=== PATIENT | male | born 2005 | race Caucasian/White ===

== ENCOUNTER → 2024-01-10 | Outpatient (CLI) | payer OTHER, SELFPAY ==
[2024-01-10 15:25] LABS: Absolute Lymphocyte Count 1.65 X10^3/uL (0.83-4.51); Absolute Neutrophil Count 1.8 X10^3/uL (2.0-7.7); Basophil# 0.03 X10^3/uL; Basophil% 0.7 % (0-1); Eosinophil# 0.15 X10^3/uL; Eosinophils% 3.7 % (0-5); Hematocrit 45.9 % (40-54); Hemoglobin 15.3 g/dL (13.0-16.5); Lymphocyte # 1.65 X10^3/ul (0.83-4.51); Lymphocyte % 41.1 % (19-41); Mean Corp Hgb Conc 33.3 g/dL (32-36); Mean Corpuscular Hgb 29.3 pg (27.0-32.0); Mean Corpuscular Volume 87.9 fL (80-94); Mean Platelet Vol. 10.9 fl (6.2-12.0); Monocyte# 0.42 X10^3/uL; Monocyte% 10.5 % (0-10); NRBC Flagged by Analyzer 0 % (0-5); Neutrophil # 1.76 X10^3/uL (2.7-7.7); Platelet Count 245 K/mm3 (150-450); RBC Distribution Width CV 12.6 % (11.6-14.6); RBC Distribution Width SD 40.3 fl (35.1-43.9); Red Blood Count 5.22 M/mm3 (4.6-6.2)
[2024-01-10 15:47] LABS: ALB/GLOB Ratio 1.3 RATIO (0.9-2.4); AST(SGOT) 17 U/L (15-37); Alanine Aminotransfer ALT/SGPT 20 U/L (16-61); Albumin, Serum 4.4 g/dL (3.2-5.0); Alkaline Phosphatase 71 U/L (45-117); Anion Gap 4 (5-15); BUN 13 mg/dL (7-18); BUN/Creat Ratio 11.5 RATIO (10-20); Calcium,Total 9.5 mg/dL (8.5-10.1); Chloride 105 mmol/L (98-107); Creatinine, Serum 1.13 mg/dL (0.70-1.30); EST Glomerular Filtration Rate 88 mL/min (>60); Est Glom Filt Rate - Afr Amer 107 mL/min (>60); Globulin 3.3 g/dL (2.2-4.2); Glucose 108 mg/dL (74-106); Potassium 4.1 mmol/L (3.5-5.1); Protein, Total 7.7 g/dL (6.4-8.2); Sodium Level 138 mmol/L (136-145)
== END | disposition home or self-care (01) ==
LOC: BIMLAB 13:23
PROVIDERS: PCP Internal Medicine; Visit Provider Internal Medicine
DX: Z00.00 Encounter for general adult medical examination without abnormal findings (principal)
CPT/HCPCS: 36415; 80053; 85025

== ENCOUNTER 2024-11-06 20:51 | Emergency (ER) | payer OTHER, SELFPAY ==
[2024-11-06 20:52] VITALS: BP 132/87; PULSE 88; RESP 16; TEMP 36.9; O2SAT 100; BMI 18.3
--- NOTE | 2024-11-06 22:44 | CT_ITS ---
PROCEDURE: ABDOMEN/PELVIS W IV CONT ONLY 11/06/2024 REASON FOR EXAM: RUQ PAIN TECHNIQUE: Abdomen and pelvis CT with intravenous contrast. Coronal and Sagittal reconstruction series were provided. PATIENT PREPARATION: Per protocol ORAL CONTRAST TYPE: None. AMOUNT: mL CONTRAST: Isovue 370 VOLUME: 100 mL Not Provided Gauge IV One or more dose reduction techniques were used (e.g., Automated exposure control, adjustment of the mA and/or kV according to patient size, use of iterative reconstruction technique. RADIATION DOSE SUMMARY: CTDlvol: 20 mGy DLP: 404 mGycm COMPARISON: None FINDINGS: Lung bases: Unremarkable Liver: Normal size. No mass. Gallbladder: Unremarkable Spleen: Normal size. Pancreas: Normal size without evidence of mass surrounding inflammation or ductal dilation. Adrenals: Unremarkable Kidneys: Normal renal sizes. No hydronephrosis. Bladder: Unremarkable Reproductive Organs: Unremarkable Bowel: [id number] stool burden within the large bowel. No inflammatory changes of the bowel loops. The stomach is grossly unremarkable. Appendix: Unremarkable Lymph nodes: No lymphadenopathy. Vasculature: Unremarkable Peritoneum / Retroperitoneum: No free air or free fluid. Bones: Unremarkable CT/Abdomen/Pelvis W IV Cont ONLY IMPRESSION: [id number]-[id number] stool burden within the large bowel. No inflammatory changes of the bowel loops. No radiographic evidence of cholelithiasis. OVERALL FINAL ASSESSMENT: . LI-RADS is not meant to be used in patients <18 years or patients with cirrhosi s due to congenital hepatic fibrosis or due to vascular disorders, because these patients have a lower chance of developing HC C. Reading Location: [facility]
[2024-11-06] MEDS: 0.9% Normal Saline (1000mL) 1,000 ML 999 ML IV (22:51)
[2024-11-06 22:53] LABS: Absolute Lymphocyte Count 1.09 X10^3/uL (0.83-4.51); Absolute Neutrophil Count 4.7 X10^3/uL (2.0-7.7); Basophil# 0.04 X10^3/uL; Basophil% 0.6 % (0-1); Eosinophil# 0.04 X10^3/uL; Eosinophils% 0.6 % (0-5); Hematocrit 46.5 % (40-54); Hemoglobin 15.9 g/dL (13.0-16.5); Lymphocyte # 1.09 X10^3/ul (0.83-4.51); Lymphocyte % 17.1 % (19-41); Mean Corp Hgb Conc 34.2 g/dL (32-36); Mean Corpuscular Hgb 29.9 pg (27.0-32.0); Mean Corpuscular Volume 87.6 fL (80-94); Mean Platelet Vol. 10.8 fl (6.2-12.0); Monocyte# 0.47 X10^3/uL; Monocyte% 7.4 % (0-10); NRBC Flagged by Analyzer 0 % (0-5); Platelet Count 239 K/mm3 (150-450); RBC Distribution Width CV 12.4 % (11.6-14.6); RBC Distribution Width SD 39.5 fl (35.1-43.9); Red Blood Count 5.31 M/mm3 (4.6-6.2); White Blood Count 6.4 K/mm3 (4.4-11.0)
[2024-11-06 23:09] LABS: Lipase 23 U/L (13-75)
[2024-11-06 23:15] LABS: AST(SGOT) 41 U/L (<=37); Alanine Aminotransfer ALT/SGPT 32 U/L (<=46); Albumin, Serum 5.4 g/dL (3.5-5.0); Alkaline Phosphatase 69 U/L (40-129); Anion Gap 14 (5-15); BUN 14 mg/dL (4-19); BUN/Creat Ratio 13.8 RATIO (10-20); Bilirubin, Direct 0.16 mg/dL (0.00-0.30); Calcium,Total 10.1 mg/dL (7.6-11.0); Carbon Dioxide 24.9 mmol/L (21.0-32.0); Chloride 100 mmol/L (98-108); Creatinine, Serum 1.01 mg/dL (0.70-1.20); EST Glomerular Filtration Rate 109 (>60); Estimated Creatinine Clearance 101.05 ml/min (50-250); Glucose 87 mg/dL (70-99); Potassium 4.3 mmol/L (3.3-5.1); Protein, Total 8.4 g/dL (5.9-8.4); Sodium Level 138 mmol/L (133-145); Total Bilirubin 0.82 mg/dL (0.00-1.30)
[2024-11-07] VITALS: BP 140/68; PULSE 81; RESP 16; O2SAT 100
[2024-11-07 00:11] LABS: Bacteria 0 SEEN /hpf (None Seen); Mucous, Urine 0 SEEN /hpf (<or=2+); Red Blood Cells-Urine 0 SEEN /hpf (0-5); Squamous Epithelial Cells - UA 0 SEEN /hpf (0-5); White Blood Cells 0 SEEN /hpf (0-5)
[2024-11-07 00:13] LABS: Color, Urine Yellow (Yellow); Glucose, Dipstick Normal (Normal); Ketone-Dipstick 50 mg/dl (Negative); Leukocyte Esterase-Dipstick Negative /ul (Negative); Nitrite-Dipstick Negative (Negative); Occult Blood-Urine Negative /ul (Negative); Protein-Dipstick 15 mg/dl (Negative); Specific Gravity, Urine 1.005 (1.002-1.030); Urine Bilirubin Dipstick Negative (Negative); Urine Clarity Clear (Clear); Urine Urobilinogen Normal (Normal)
--- NOTE | 2024-11-07 01:16 | EDS_ITS ---
HPI History of Present Illness Chief Complaint: Abd Pain Informant: patient and parent Narrative Narrative: Patient is a 19-year-old male who is otherwise healthy who presents to the ER with approximately 1 to 2 days of abdominal pain. Patient states that over the last 1 to 2 days he has had intermittent pain in the right upper abdomen. He states there is no associated nausea or vomiting. He denies any worsening with eating. He states there is been no dysuria or hematuria/discolored urine. He reports that other than the pain there has been no fevers chills or sick symptoms. Family states that his sister had an atypical presentation for appendicitis leading to perforation when she was younger and they have concern for that based on his symptoms and therefore he was brought in for evaluation [facility] Medical History Encounter to establish care Preventative health care Asthma Seasonal allergies Home Medications ?Medication ?Instructions ?Recorded ?Last Taken ?Type NK 12/28/22 Unknown History Allergy/AdvReac Type Severity Reaction Status Date / Time Seasonal Allergies: Uncoded Allergy Mild cough Verified 11/06/24 20:52 Family History Mother Anxiety Father DVT (deep venous thrombosis) Hypertension High cholesterol Kidney disease Social History (Updated 03/01/24 @ 10:00 by Susan Olvera MA) household members: family housing: house current occupational status: unemployed Smoking Status: Never smoker alcohol intake: never substance use type: does not use what type of physical activity do you participate in: running frequency: 5-6 times per week seatbelt use: always do you feel safe at home: Yes ROS ROS ED Constitutional Constitutional ED: Denies chills or fever(s) Eyes Eyes: Denies blurry vision or change in vision ENT ENT ED: Denies sore throat Cardiovascular Cardiovascular: Denies chest pain Respiratory/Chest Respiratory/Chest: Denies cough or dyspnea Gastrointestinal Gastrointestinal: Reports abdominal pain; Denies diarrhea, nausea or vomiting Genitourinary Genitourinary ED: Denies dysuria or hematuria Musculoskeletal Musculoskeletal: Denies back pain Integumentary Denies Abrasions or rash Neurologic Neurologic: Denies headache(s) Hematologic/Lymphatic Hematologic/Lymphatic: Denies easy bleeding or easy bruising EXAM Physical Exam Const Vital Signs: 11/06/24 20:52 11/07/24 00:00 11/07/24 01:21 Temperature 98.4 F 98.6 F Temperature Source Oral Pulse Rate 88 81 81 Respiratory Rate 16 16 16 Blood Pressure 132/87 H 140/68 H 140/68 H Blood Pressure Mean 102 92 92 Pulse Ox 100 100 100 Oxygen Delivery Method Room Air Room Air Positive well nourished and well developed General Appearance ED: well developed; Negative for pallor HEENT Reports moist mucous membranes HEENT Narrative: No tongue or lip swelling no oral lesions no airway edema or compromise No secondary findings in the posterior pharynx to suggest infection Eyes PERRL and EOMs intact bilaterally General Eye ED: Negative for scleral icterus Neck supple Resp normal respiratory effort and clear to auscultation bilaterally Cardio regular rate and regular rhythm GI non-distended and no masses GI Narrative: Abdomen is soft and nondistended with normal active bowel sounds Patient has pain with palpation in the right upper quadrant. However no voluntary guarding or rigidity. Negative Garcia sign No pain over McBurney's point Negative heel strike psoas and aegis console operator track signs Auscultation: normoactive bowel sounds Palpation: soft Back/Spine no CVA tenderness Extremity normal to inspection Neuro oriented x3, CN's II-XII intact bilaterally and no sensory deficits noted Sensorium / Orientation: alert Motor Exam: strength 5/5 throughout Psych mental status grossly normal Skin no rashes or lesions noted and no wounds General Skin Exam: Negative for jaundice or pallor MDM MDM MDM Narrative Medical decision making narrative: Patient presented to the ER with 1 to 2 days of of upper abdominal pain. Differ ential diagnosis is for biliary colic versus acute cholecystitis versus pancreatitis versus atypical presentation for kidney stone versus atypical presentation for appendicitis. Secondary to this basic labs with a urine sample and a CT scan with IV contrast were ordered. Labs and urine sample showed no clinically significant findings. As he does not have CVA pain or hematuria concern for kidney stone is low. CT scan revealed findings consistent with constipation but no signs of acute appendicitis or findings of gallstones or gallbladder inflammation. Therefore at this time as overall workup is negative and he has had spontaneous improvement of symptoms I do not feel there is need for further intervention and he is otherwise safe for discharge History & Record Review Discussion w/independent historian: Patient and Family Lab Data Attestation: I reviewed the patient's lab results. Labs: Laboratory Results - last 24 hr 11/06/24 11/07/24 22:38 00:05 WBC 6.4 RBC 5.31 Hgb 15.9 Hct 46.5 MCV 87.6 MCH 29.9 MCHC 34.2 RDW Std Deviation 39.5 RDW Coeff of Bela 12.4 Plt Count 239 MPV 10.8 Immature Gran % (Auto) 0.300 Neut % (Auto) 74.0 H Lymph % (Auto) 17.1 L [place] % (Auto) 7.4 Eos % (Auto) 0.6 Baso % (Auto) 0.6 Absolute Neuts (auto) 4.7 Absolute Lymphs (auto) 1.09 Nucleated RBC % 0 Sodium 138 Potassium 4.3 Chloride 100 Carbon Dioxide 24.9 Anion Gap 14 BUN 14 Creatinine 1.01 Estim Creat Clear Calc 101.05 Est GFR (MDRD) Non-Af 109 BUN/Creatinine Ratio 13.8 Glucose 87 Calcium 10.1 Total Bilirubin 0.82 Direct Bilirubin 0.16 AST 41 H ALT 32 Alkaline Phosphatase 69 Total Protein 8.4 Albumin 5.4 H Globulin 3.0 Lipase 23 Urine Color Yellow Urine Clarity Clear Urine pH 7.0 Ur Specific [place] 1.005 Urine Protein 15 H Urine Glucose (UA) Normal Urine Ketones 50 H Urine Occult Blood Negative Urine Nitrite Negative Urine Bilirubin Negative Urine Urobilinogen Normal Ur Leukocyte Esterase Negative Urine RBC 0 SEEN Urine WBC 0 SEEN Ur Squamous Epith Cells 0 SEEN Urine Bacteria 0 SEEN Urine Mucus 0 SEEN Radiography Diagnostic Testing: Clinical Impression(s) from Imaging Studies Abdomen/Pelvis CT 11/06/24 22:44 IMPRESSION: [id number]-[id number] stool burden within the large bowel. No inflammatory changes of the bowel loops. No radiographic evidence of cholelithiasis. OVERALL FINAL ASSESSMENT: . LI-RADS is not meant to be used in patients <18 years or patients with cirrhosis due to congenital hepatic fibrosis or due to vascular disorders, because these patients have a lower chance of developing HCC. Reading Location: [facility] Discharge Plan Triage Chief Complaint: Abd Pain ED Provider: Flavio Lyon Dx/Rx/DC Orders Clinical Impression: Nonspecific abdominal pain, Constipation Instructions: Abdominal Pain, ED Constipation (Adult) Prescriptions: No Action NK Primary Care Provider: Ninfa Douglass Referrals: Ninfa Douglass MD [Primary Care Provider] - Activity Restrictions/Additional Instructions: Your CAT scan did not show any sign of acute appendicitis kidney stone or gallbladder infection/gallstones. It did document a large stool burden and therefore use [id number] medications such as MiraLAX to help stimulate a bowel movement. Return to the ER should you have any further concerns Print Language: Gabonese Disposition Disposition: Home, Self Care Discharge Date/Time: 11/07/24 01:22
[2024-11-07 01:21] VITALS: BP 140/68; PULSE 81; RESP 16; TEMP 37; O2SAT 100
== END 2024-11-07 01:22 | disposition home or self-care (01) ==
PROVIDERS: Emergency Provider Emergency Medicine; PCP Internal Medicine; Visit Provider Emergency Medicine
DX: R10.11 Right upper quadrant pain (principal); K59.00 Constipation, unspecified; J45.909 Unspecified asthma, uncomplicated
CPT/HCPCS: 74177; 80048; 80076; 81001; 83690; 85025; 96360; 96361; 99282; A4216